=== PATIENT | female | born 1985 | race Two or more races ===

== ENCOUNTER → 2020-01-29 | Day surgery (SDC) | payer OTHER ==
[~2020-01-29] MED LIST: MORGIDOX100 MG PO; Tylenol #3 PO
== END | disposition home or self-care (01) ==
LOC: ADM 01-26 09:30 → CIR.AMB 06:18 → ADM 09:30 → CIR.AMB 11:45
DX: D25.0 Submucous leiomyoma of uterus (principal); D28.1 Benign neoplasm of vagina

== ENCOUNTER 2025-02-06 09:48 | Outpatient (CLI) | payer OTHER | END 2025-02-06 10:12 | disposition home or self-care (01) | LOC: MAMO-SONO 09:48 | PROVIDERS: ATTEND Obstetrics & Gynecology | DX: N60.19 Diffuse cystic mastopathy of unspecified breast (principal); N70.11 Chronic salpingitis ==